=== PATIENT | female | born 1965 | race Caucasian/White ===

== ENCOUNTER 2017-03-24 10:51 | Emergency (ER) | payer OTHER ==
[~2017-03-24] VITALS: Ht 177.8 cm; Wt 73.5 kg
[~2017-03-24 10:51] MED LIST: BIOT1CAP3 PO; CITA20TA9 PO; LEVO175T PO; NXM/40 PO; PROB1TAB16 PO
[2017-03-24 10:57] VITALS: TEMP 36.5; Ht 177.8 cm; Wt 73.5 kg
[2017-03-24] MEDS ORDERED: DIAZEPAM INJ 5 MG/ML 2 ML CARP IM STA (11:18)
[2017-03-24] MEDS ORDERED: KETOROLAC TROMETHAMINE 60 MG/2 ML VIAL IM STA (11:18)
[2017-03-24] MEDS ORDERED: LEVO125T72 PO (11:22)
--- NOTE | 2017-03-24 12:07 | DIAGNOSTIC IMAGING REPORT ---
C-SPINE ROUTINE 4 OR 5 VIEWS CLINICAL HISTORY: right side neck pain with numb/tingling down arm COMPARISON STUDY: No previous studies for comparison. FINDINGS: The prevertebral soft tissues are normal. There are degenerative changes present C4-5, C5-6, and C6-7 levels. There are small posterior osteophytes at the C5-6 level. There is right-sided foraminal narrowing at the C5-6 and C6-7 levels. There is left-sided foraminal narrowing at the C5-6 and C6-7 levels. No fractures or traumatic subluxations are visualized. IMPRESSION: Degenerative changes the C 4-5, C5-6, and C6-7 levels. Bony foraminal narrowing secondary to uncinate spurring. Electronically signed by: Bhavesh Kam M.D. 03/24/2017 12:05 PM Dictated Date/Time: 03/24/2017 12:04 PM
--- NOTE | 2017-03-24 12:44 | EMERGENCY ROOM VISIT NOTE ---
ED Visit Note First contact with patient: 11:06 CHIEF COMPLAINT: Neck pain HISTORY OF PRESENT ILLNESS: This is patient presents to the emergency department complaining of pain in the neck on the right side for the past week. The patient rates the pain as achy and sharp and 7/10. The patient has taken ibuprofen and Flexeril for the pain. The patient does not have a history of previous neck problems. There was no injury to the neck. 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 She is right-hand dominant. The patient states the pain radiates into her right shoulder blade area. She does not have pain of the arms. The patient reports intermittent numbness and tingling in both arms, right more than left, states this is worse with certain positions of her neck. She denies any weakness in the arms. The patient denies chest pain or shortness of breath. There was no head injury and no loss of consciousness. The patient denies headache, blurred vision, abdominal pain, nausea, or vomiting. The patient denies change in personality. REVIEW OF SYSTEMS: A 10 point system review of systems was completed with positives and pertinent negatives listed in the HPI. ALLERGIES: See body of chart MEDICATIONS: See body of chart PMH: Hypothyroidism, anxiety/depression. 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 Denies tobacco, alcohol, recreational drugs. PHYSICAL EXAM: VITALS: Vitals are noted on the nurse's note and reviewed by myself. Vital signs stable. GENERAL: Awake and alert, oriented 4, in no acute distress, non- diaphoretic, well-developed well-nourished. SKIN: Capillary reflex less than 2 seconds. HEENT: Normocephalic. PERRLA. EOMI. Nares patent. Mucous membranes moist. Neck is supple without nuchal rigidity. Cervical spine is not tender to palpation. The patient has tenderness of the paraspinal muscles on the right side, as well as the right trapezius muscle. There is no lymphadenopathy. MUSCULOSKELETAL: The patient has full range of motion of the bilateral arms. Strength 5/5 of the bilateral upper extremities. The patient has tenderness with range of motion of the neck, especially extension and rotation to the left. NEURO: Patient was alert and oriented to person place and time. Normal sensation to light and sharp touch. No focal neurologic deficits. DIFFERENTIAL DIAGNOSES: Cervical muscle strain, sprain, torticollis, disc bulging, cervical stenosis; less likely cervical fracture. DIAGNOSTICS: C-SPINE ROUTINE 4 OR 5 VIEWS CLINICAL HISTORY: right side neck pain with numb/tingling down arm COMPARISON STUDY: No previous studies for comparison. FINDINGS: The prevertebral soft tissues are normal. There are degenerative changes present C4-5, C5-6, and C6-7 levels. There are small posterior osteophytes at the C5-6 level. There is right-sided foraminal narrowing at the C5-6 and C6-7 levels. There is left-sided foraminal narrowing at the C5-6 and C6-7 levels. No fractures or traumatic subluxations are visualized. IMPRESSION: Degenerative changes the C 4-5, C5-6, and C6-7 levels. Bony foraminal narrowing secondary to uncinate spurring. EMERGENCY DEPARTMENT COURSE: I examined the patient. She has tenderness to palpation of the right paraspinous and trapezius muscles, aggravated with range of motion. She has no neurologic deficits of weakness, decreased coordination, or sensory loss. Given her age and persistence of symptoms, x-ray of the neck was performed which shows degenerative changes from C4 to C7 bilaterally, no acute problems. Patient was treated with IM Toradol and Valium, with good improvement in her pain and improved range of motion in the neck. Patient was provided with Rx for Valium and Naprosyn, and encouraged to follow up with her PCP. Patient was also provided with a disc of her x-ray to share with her PCP. Current/Historical Medications Scheduled Biotin (Biotin), 5,000 MCG PO QAM Citalopram Hydrobromide (Celexa), 20 MG PO QAM Diazepam (Valium), 5 MG PO QID Levothyroxine Sodium (Synthroid), 125 MCG PO DAILY Naproxen (Naprosyn), 500 MG PO BID Probiotic Product (Probiotic), 1 TAB PO QAM Allergies Coded Allergies: Morphine (Verified Allergy, Unknown, N/V, 03/24/17) Penicillins (Verified Allergy, Unknown, HIVES, 03/24/17) Vital Signs Date Time Temp Pulse Resp B/P Pulse Ox O2 Delivery O2 Flow Rate FiO2 03/24/17 12:36 51 18 116/61 98 Room Air 03/24/17 10:57 36.5 67 18 123/76 99 Room Air Medications Administered Medications (Trade) Dose Ordered Sig/Deana Route Start Time Stop Time Status Last Admin Dose Admin Ketorolac Tromethamine (Toradol Inj) 60 mg NOW STAT IM 03/24/17 11:18 03/24/17 11:24 DC 03/24/17 11:31 60 MG Diazepam (Valium Inj) 10 mg NOW STAT IM 03/24/17 11:18 03/24/17 11:24 DC 03/24/17 11:31 10 MG Departure Information Impression Primary Impression: Musculoskeletal neck pain Additional Impression: Degenerative cervical spinal stenosis Dispostion Home / Self-Care Condition GOOD Prescriptions Diazepam (Valium) 5 Mg Tab 5 MG PO QID for 4 Days, #16 TAB Prov: Ann Marie Cespedes, DOCUMENT CONTROLLER 03/24/17 Naproxen (Naprosyn) 500 Mg Tab 500 MG PO BID for 14 Days, #28 TAB Prov: Ann Marie Cespedes, DOCUMENT CONTROLLER 03/24/17 Referrals Ashlee Moran M.D. (PCP) Patient Instructions ED Neck Pain No Trauma, ED Spasm Neck No Injury, [facility] Additional Instructions Follow-up with your PCP in the next few days if your neck pain is not improving with medications. Take all medications as prescribed. Take the Aleve twice a day for the next several days to help with inflammation and pain. Take the Valium one tablet every 6-8 hours as needed for muscle spasms. This this medication may make you drowsy, so it is important that you do not drive, drink alcohol, or do any other activities where you need to be fully alert. Use a heating pad or warm compresses to the area several times at the day for comfort. Do gentle stretches and gentle massage as tolerated. Avoid repetitive or strenuous activities that may aggravate and worse in your pain. Please return to the ER for any worsening symptoms, including severe headache, complete numbness or weakness of one or both arms, severe worsening pain that is not managed with medications, or any other concerns. Problem Qualifiers
[2017-03-24] MEDS ORDERED: NAPR-1169 PO (13:01)
[2017-03-24] MEDS ORDERED: DIAZ-165 PO (13:01)
[2017-03-24 13:08] VITALS: BP 107/71; PULSE 58; O2SAT 97
== END 2017-03-24 13:09 | disposition home or self-care (01) ==
LOC: C.EDB 10:54 → C.EDD 13:09
DX: M54.2 Cervicalgia (principal); M48.02 Spinal stenosis, cervical region; E03.9 Hypothyroidism, unspecified; F41.8 Other specified anxiety disorders; Z79.899 Other long term (current) drug therapy

== ENCOUNTER 2021-02-08 10:40 | Inpatient (IN) ==
[2021-02-08] MEDS ORDERED: HYDROmorphone INJ 0.5 MG/0.5 ML SYR IV STA ×2 (10:55→13:05)
[2021-02-08] MEDS ORDERED: ONDANSETRON INJ 2 MG/ML 2 ML VIAL IV STA (10:56)
--- NOTE | 2021-02-08 10:59 | Emergency Department Note ---
Impression & Plan Syncope, Status post right partial knee replacement, Lightheaded, Acute hypokalemia ED Provider Note NAME: BONY DEGROOT AGE: 56 SEX: F : 1965 ARRIVES VIA: Ambulance INFORMANT: Patient ED PROVIDER(S): Meño Snyder DO CHIEF COMPLAINT: Near syncope/syncope HPI: Patient is a 56-year-old female who presents to the ER status post right partial knee replacement. Patient had this done on Tuesday by Dr. Singh. Last night and today she has been having severe pain with movement. She believes that she overdid it yesterday. She admits that when she goes to stand or sit up she had severe pain and she became nauseated which progressed to blurry vision and then everything nearly goes black. If she lays back and this all resolves. She did pass out once. She did not hit her head. She sitting in chair when this occurred. She denies any headache or change in vision. No chest pain or shortness of breath. Denies any nausea, vomiting, or diarrhea currently. No dysuria, urgency, or frequency. She took 1 dose of Xarelto yesterday. She did not take it today. Denies any recent blood thinners as her clot was several months ago and she was only on thinners for 3 months. ROS: See above HPI for pertinent positives & negatives. A total of 10 systems reviewed and were otherwise negative. PAST MEDICAL HISTORY:See Below PAST SURGICAL HISTORY:See Below FAMILY HISTORY:See Below SOCIAL HISTORY:See Below HOME MEDICATIONS:See Below ALLERGIES:See Below VITALS:See Below PHYSICAL EXAMINATION: GENERAL: Sitting up in bed, alert, well appearing, well nourished, no distress, non-toxic EYE EXAM: normal conjunctiva. PERRL and EOM's intact. OROPHARYNX: no exudate, no erythema, lips, buccal mucosa, and tongue normal and mucous membranes are moist NECK: supple, no nuchal rigidity, no adenopathy, non-tender LUNGS: Clear to auscultation. Normal chest wall mechanics HEART: no murmurs, S1 normal and S2 normal ABDOMEN: abdomen soft, non-tender, normo-active bowel sounds, no masses, no rebound or guarding. UPPER EXTREMITIES: upper extremities are grossly normal. LOWER EXTREMITIES: TEDS on bilateral lower extremities. Right knee is swollen with dressing in place and bruise. Compartments are soft in the calf and thigh. Sensations intact. DPs 2 out of 4. NEURO EXAM: Normal sensorium, cranial nerves II-XII intact, normal speech, no weakness of arms, no weakness of legs. No drift. Finger to nose intact. Gross sensation intact. MEDICAL DECISION MAKING: Patient is a 56-year-old female who presents the ER for syncope and near syncope following having partial knee replacement performed on Tuesday.IV was established blood work was obtained. She was hypertensive. Labs show no significant leukocytosis or anemia. BMP with mild hypokalemia. INR was unremarkable. LFTs bilirubin were negative. Troponin was normal. EKG was nondiagnostic. CT angio was performed with a history of previous PEs and recent surgery and was negative. Patient ambulated to the bathroom and nearly passed out again. I do favor this is likely vasovagal but cannot be certain at this time. Either rate patient is stable to go home.2 dose of IV Dilaudid given. Triage Nursing notes reviewed. Limited review of prior medical records performed Vital Signs: reviewed and remarkable for HTN Differential diagnosis: Differential diagnosis includes etiologies such as benign positional vertigo, dehydration, hypovolemia, anemia, tumor, infection, hypoglycemia, electrolyte abnormalities, cardiac sources, intracerebral event, toxicologic, neurological, as well as others were entertained. ER treatment provided: See below Diagnostics interpreted by me: ECG: Sinus bradycardia rate of 57 Normal axis No PVCs QTC 383 Cardiac Monitoring: An order was placed for continuous cardiac monitoring. The monitor shows a rate of 60 with sinus rhythm. Laboratory studies: As stated above and show below. Imaging studies: CT Lauren of the chest shows no acute pathology Consultation(s): Discussed with Dr. Jax Patel for further evaluation Procedures: none Critical Care: None Past Med/Surg History Medical History (Updated 02/08/21 @ 14:27 by Meño Snyder DO) Anxiety Hx of thyroid cancer resolved 2009 no chemo/ had radioactive iodine Hypothyroidism On anticoagulant therapy started 10/28/2020 and to finish 01/26/21 Osteoarthritis Pulmonary embolism dx 10/28/2020 -- treated with anticoagulation. [place] possibly related to knee arthroscopy 08/2020. Spinal stenosis cervical Surgical History (Updated 02/08/21 @ 14:27 by Meño Snyder DO) H/O thyroidectomy History of arthroscopy x1left shoulder /x2 right shoulder History of bilateral tubal ligation History of colonoscopy History of esophagogastroduodenoscopy (EGD) History of repair of rotator cuff bilateral Hx of foot surgery right no pins or metal Hx of prior ablation treatment uterine Nausea and vomiting after administration of anesthetic agent S/P arthroscopy of right shoulder x2 S/P right knee arthroscopy Status post right partial knee replacement (~01/2021) Family History Sister Diabetes Other No family history of adverse response to anesthesia Social History Smoking Status: Never smoker Second Hand Exposure: No; Hx Alcohol Use: No Hx Substance Use: No Preferred Language: Nigerian Communication Ability: Effective Nut Picker Required: No Beliefs That Will Affect Care: None marital status: Current Living Situation: Spouse and Family Feels Safe at Home: Yes Assistive Devices: Walker Allergies Allergies Allergy/AdvReac Type Severity Reaction Status Date / Time Penicillins Allergy Severe HIVES Verified 02/08/21 11:06 morphine AdvReac Severe N/V Verified 02/08/21 11:06 Home Meds Home Medications Medication Instructions Recorded Confirmed levothyroxine [Synthroid] 125 mcg PO QAM 09/24/19 02/08/21 ibuprofen [Advil] 400 mg PO DAILY PRN 08/19/20 02/08/21 citalopram 30 mg PO QAM 01/05/21 02/08/21 esomeprazole magnesium 40 mg PO QAM 01/05/21 02/08/21 famotidine 40 mg PO QPM PRN 01/05/21 02/08/21 minocycline 50 mg PO QAM 01/05/21 02/08/21 docusate sodium [Colace] 100 mg PO DAILY 02/06/21 02/08/21 Previous Rx's Medication Instructions Recorded Xarelto 10 mg PO QAM 10 Days #0 tab 02/07/21 oxycodone 5 mg PO Q4H PRN #30 tab 02/07/21 Results & Data (ED) Vital Signs Vital Signs - 24 hr 02/08/21 10:47 02/08/21 10:53 02/08/21 11:14 Temperature 37.6 C H Temperature Source Oral Pulse Rate - Lying 62 Pulse Rate - Sitting 57 L Pulse Rate - Standing 71 Pulse Rate 58 L Pulse Rate [Left Apical] Pulse Rhythm [Left Apical] Pulse Strength [Left Apical] Respiratory Rate 18 Respiratory Effort / Characteristics Respiratory Depth Respiratory Pattern Blood Pressure - Lying 161/91 H Blood Pressure - Sitting 155/79 H Blood Pressure- Standing 127/86 Blood Pressure 176/80 H Blood Pressure [Right Arm] Blood Pressure Mean 112 Blood Pressure Mean [Right Arm] Blood Pressure Position [Right Arm] Pulse Oximetry 98 98 Oxygen Delivery Method Room Air Room Air Sepsis Recent Fever Within 48 Hours No Sepsis New/Unexplained Change in Mental Status N/A Sepsis Action Taken by Nursing No Action Required 02/08/21 11:30 02/08/21 12:22 02/08/21 13:39 Temperature Temperature Source Pulse Rate - Lying Pulse Rate - Sitting Pulse Rate - Standing Pulse Rate Pulse Rate [Left Apical] 56 L 59 L 54 L Pulse Rhythm [Left Apical] Regular Regular Regular Pulse Strength [Left Apical] Normal Normal Normal Respiratory Rate 16 16 16 Respiratory Effort / Characteristics Non-Labored Spontaneous Non-Labored Spontaneous Non-Labored Spontaneous Respiratory Depth Normal Normal Normal Respiratory Pattern Regular Regular Regular Blood Pressure - Lying Blood Pressure - Sitting Blood Pressure- Standing Blood Pressure Blood Pressure [Right Arm] 127/86 166/94 H 169/80 H Blood Pressure Mean Blood Pressure Mean [Right Arm] 99 118 109 Blood Pressure Position [Right Arm] Lying Lying Pulse Oximetry 99 99 99 Oxygen Delivery Method Room Air Room Air Room Air Sepsis Recent Fever Within 48 Hours Sepsis New/Unexplained Change in Mental Status Sepsis Action Taken by Nursing Laboratory Data Result diagrams: 02/08/21 Unknown 02/08/21 Unknown Lab Results 02/08/21 02/08/21 02/08/21 Range/Units Unknown Unknown Unknown WBC 9.72 (4.8-10.8) K/uL RBC 3.66 L (4.2-5.4) M/uL Hgb 12.1 (12.0-16.0) g/dL Hct 35.4 L (37-47) % MCV 96.7 (80-100) fL MCH 33.1 (25-34) pg MCHC 34.2 (32-36) g/dL RDW Std Deviation 47.7 H (36.4-46.3) fL RDW Coeff of Mahnaz 13.6 (11.5-14.5) % Plt Count 312 (130-400) K/uL MPV 8.9 (7.4-10.4) fL Immature Gran % (Auto) 0.5 % Neut % (Auto) 64.2 % Lymph % (Auto) 24.6 % [place] % (Auto) 10.5 % Eos % (Auto) 0.1 % Baso % (Auto) 0.1 % Neut # (Auto) 6.24 (1.4-6.5) K/uL Lymph # (Auto) 2.39 (1.2-3.4) K/uL [place] # (Auto) 1.02 H (0.11-0.59) K/uL Eos # (Auto) 0.01 (0-0.5) K/uL Baso # (Auto) 0.01 (0-0.2) K/uL Immature Gran # (Auto) 0.05 H (0.00-0.02) K/uL PT 9.8 (9.0-12.0) Seconds INR 1.0 (0.9-1.1) Sodium 142 (136-145) mmol/L Potassium 3.4 L (3.5-5.1) mmol/L Chloride 105 (98-107) mmol/L Carbon Dioxide 32 (21-32) mmol/L Anion Gap 5.0 (3-11) BUN 10 (7-18) mg/dl Creatinine 0.87 (0.6-1.2) mg/dl Est Cr Clr Drug Dosing 86.5 ml/min Est GFR ( Amer) 85.1 Est GFR (Non-Af Amer) 73.4 BUN/Creatinine Ratio 11.6 (10-20) Glucose 90 (70-99) mg/dl Calcium 8.7 (8.5-10.1) mg/dl Total Bilirubin 0.4 (0.2-1) mg/dl AST 13 L (15-37) U/L ALT 24 (12-78) U/L Alkaline Phosphatase 89 (45-117) U/L Troponin I < 0.015 (0-0.045) ng/ml Total Protein 7.1 (6.4-8.2) gm/dl Albumin 3.3 L (3.4-5.0) gm/dl Globulin 3.8 (2.5-4.0) gm/dl Albumin/Globulin Ratio 0.9 (0.9-2) Administered Medications Discontinued Medications Hydromorphone HCl (Hydromorphone Inj 0.5 Mg/0.5 Ml Syr) 0.5 mg IV NOW STA Stop: 02/08/21 10:56 Last Admin: 02/08/21 11:16 Dose: 0.5 mg Documented by: [id number] Hydromorphone HCl (Hydromorphone Inj 0.5 Mg/0.5 Ml Syr) 0.5 mg IV NOW STA Stop: 02/08/21 13:06 Last Admin: 02/08/21 13:38 Dose: 0.5 mg Documented by: [id number] Sodium Chloride (Nss 1000ml) 1,000 mls @ 999 mls/hr IV .Q1H1M RA Stop: 02/08/21 12:00 Last Infusion: 02/08/21 12:12 Dose: 0 mls/hr Documented by: [id number] Admin: 02/08/21 11:17 Dose: 999 mls/hr Documented by: [id number] Ioversol (Optiray 320 125ml) 118 ml IV ONCE ONE Stop: 02/08/21 11:02 Last Admin: 02/08/21 11:01 Dose: 118 ml Documented by: [id number] Ondansetron HCl (Ondansetron Inj 2 Mg/Ml 2 Ml Vial) 4 mg IV NOW STA Stop: 02/08/21 10:57 Last Admin: 02/08/21 11:16 Dose: 4 mg Documented by: [id number] Discharge Plan Visit Data Chief Complaint: Dizziness ED Provider: Meño Snyder Discharge Problem: Syncope, Status post right partial knee replacement, Lightheaded, Acute hypokalemia Forms Stand Alone Forms: [facility] Prescriptions Prescriptions: No Action citalopram 20 mg Tablet 30 mg PO QAM RF: 0 esomeprazole magnesium 40 mg Capsule,Delayed Release(Dr/Ec) 40 mg PO QAM RF: 0 minocycline 50 mg Tablet 50 mg PO QAM RF: 0 famotidine 40 mg Tablet 40 mg PO QPM PRN (Reason: Heartburn) RF: 0 docusate sodium [Colace] 100 mg Capsule 100 mg PO DAILY RF: 0 oxycodone 5 mg Tablet 5 mg PO Q4H PRN (Reason: pain) Qty: 30 RF: 0 Xarelto 20 mg Tablet 10 mg PO QAM 10 Days Qty: 0 RF: 0 levothyroxine [Synthroid] 125 mcg Tablet 125 mcg PO QAM RF: 0 ibuprofen [Advil] 200 mg Tablet 400 mg PO DAILY PRN (Reason: Pain) RF: 0 Discharge Problem: Syncope Qualifiers: Syncope type: unspecified Qualified Code(s): R55 - Syncope and collapse
[2021-02-08] MEDS ORDERED: SODIUM CHLORIDE 0.9% 1000ML 1,000 ML IV SCH ×2 (11:00→16:29)
[2021-02-08] MEDS ORDERED: OPTIRAY 320 125ml IV ONE (11:01)
[2021-02-08 11:04] LABS: Basophils # (auto) 0.01 K/uL (0-0.2); Basophils % (auto) 0.1 %; Eosinophils # (auto) 0.01 K/uL (0-0.5); Eosinophils % (auto) 0.1 %; Hematocrit (blood only) 35.4 % (37-47); Hemoglobin 12.1 g/dL (12.0-16.0); Immature Granulocytes # (auto) 0.05 K/uL (0.00-0.02); Immature Granulocytes % (auto) 0.5 %; Lymphocytes # (auto) 2.39 K/uL (1.2-3.4); Lymphocytes % (auto) 24.6 %; Mean Corpuscular Hemoglobin 33.1 pg (25-34); Mean Corpuscular Hgb Conc 34.2 g/dL (32-36); Mean Corpuscular Volume 96.7 fL (80-100); Mean Platelet Volume 8.9 fL (7.4-10.4); Monocytes # (auto) 1.02 K/uL (0.11-0.59); Monocytes % (auto) 10.5 %; Neutrophils # (auto) 6.24 K/uL (1.4-6.5); Neutrophils % (auto) 64.2 %; Platelet Count 312 K/uL (130-400); RDW Coefficient of Variation 13.6 % (11.5-14.5); RDW Standard Deviation 47.7 fL (36.4-46.3); Red Blood Count 3.66 M/uL (4.2-5.4); White Blood Count 9.72 K/uL (4.8-10.8)
[2021-02-08 11:13] LABS: Prothrombin Time 9.8 Seconds (9.0-12.0)
[2021-02-08 11:19] LABS: Alanine Aminotransferase 24 U/L (12-78); Albumin Level 3.3 gm/dl (3.4-5.0); Aspartate Aminotransferase 13 U/L (15-37); BUN Creatinine Ratio 11.6 (10-20); Blood Urea Nitrogen 10 mg/dl (7-18); Calcium 8.7 mg/dl (8.5-10.1); Carbon Dioxide 32 mmol/L (21-32); Chloride 105 mmol/L (98-107); Creatinine Clr Calc Pharmacy 86.5 ml/min; Est GFR (African American) 85.1; Est GFR (Non-African American) 73.4; Glucose 90 mg/dl (70-99); Potassium 3.4 mmol/L (3.5-5.1); Sodium 142 mmol/L (136-145)
[2021-02-08 11:24] LABS: Albumin Globulin Ratio 0.9 (0.9-2); Alkaline Phosphatase 89 U/L (45-117); Bilirubin,Total 0.4 mg/dl (0.2-1); Globulin 3.8 gm/dl (2.5-4.0); Total Protein 7.1 gm/dl (6.4-8.2); Troponin I < 0.015 ng/ml (0-0.045)
--- NOTE | 2021-02-08 12:17 | CT Scan Report ---
CT angio chest PE protocol CT DOSE: 357.65 mGy.cm HISTORY: 56 years-old Female with recent surg and PEs w/ syncope. Acute shortness of breath with sy ncope TECHNIQUE: Multiple CTA images of the chest were obtained after the intravenous administration of 118 ml Optiray 320. Coronal and sagittal MIPS were obtained from the axial data set and were submitted for review. All measurements were obtained according to NASCET criteria. A dose lowering technique w as utilized adhering to the principles of ALARA. COMPARISON: None. FINDINGS: CTA: The heart is normal in size. No pericardial effusion. No thoracic aortic aneurysm or dissection. Dumont ncy of the imaged great vessels. Satisfactory opacification of the pulmonary arterial tree. No pulmon jennifer emboli. CT CHEST: Thyroidectomy. No adenopathy. Trace pleural effusions. There is no pneumothorax, overt pulmonary berta a or airspace consolidation to suggest pneumonia. Mild dependent subsegmental bibasilar atelectasis. Central airways are patent. No suspicious pulmonary nodules. Indeterminate 3 mm right middle lobe nod ule, image 97 series 4 is of low clinical suspicion. No pneumoperitoneum. No acute process of the imaged upper abdomen. Unremarkable soft tissues. No acut e fracture. No suspicious bone lesion. IMPRESSION: 1. No pulmonary emboli. 2. Trace pleural effusions with mild dependent subsegmental bibasilar atelectasis. ACT 112: Negative or not required by law. The above report was generated using voice recognition software. It may contain grammatical, syntax o r spelling errors. Electronically signed by: Raza Gruber M.D. 02/08/2021 12:16 PM
--- NOTE | 2021-02-08 13:41 | History & Physical Report ---
Date of Service February 08, 2021 Assessment & Plan (1) Syncope: Patient presents with syncope at home associated with postoperative pain. In the emergency department she is hypertensive bradycardic with a low-grade temperature. Does not appear to have an immediate infectious source has a mild h ypokalemia 3.4, negative troponin, CTA of the chest shows no pulmonary emboli subsegmental bibasilar atelectasis, EKG shows sinus bradycardia with LVH will have on telemetry, check echo, control pain , hydrate and have orthostatic blood pressures in the am (2) Pulmonary embolism: Patient was restarted on Xarelto initiated on this therapy October 28. We will continue with Xarelto 10 at this point time as CTA was negative at admission (3) Status post right partial knee replacement: Underwent right total knee replacement 02/06/[address] Singh DVT prevention will be Xarelto 10 mg postoperatively daily (4) Hypothyroidism: Remains on Synthroid 125, will check TSH and T4 the morning (5) Depression: Continue citalopram (6) Hypokalemia: Augment potassium and magnesium with rechecks in the morning History of Present Illness Primary Care Provider: Roel Huynh M.D. 55-year-old female who underwent total knee arthroplasty on 02/07/2021. This was due to failure of outpatient management of osteoarthritis, meniscal tear. She presents to the ER with complaints of dizziness and weakness. She has been having severe pain with movement. She believes that she overdid it 02/07/21 She admits that when she goes to stand were set up she had severe pain she is nauseated with blurry vision and that everything nearly goes black. She did pass out once. She did not hit her head. She sitting in chair when this occurred. She denies any headache or change in vision. No chest pain or shortness of breath. Denies any nausea vomiting or diarrhea currently. No dysuria, urgency, or frequency. She took 1 dose of Xarelto yesterday. She did not take it today. 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 To this end we will try a scopolamine patch and as needed meclizine Allergies Allergy/AdvReac Type Severity Reaction Status Date / Time Penicillins Allergy Severe HIVES Verified 02/08/21 11:06 morphine AdvReac Severe N/V Verified 02/08/21 11:06 Home Medications Medication Instructions Recorded Confirmed Type levothyroxine [Synthroid] 125 mcg PO QAM 09/24/19 02/08/21 History ibuprofen [Advil] 400 mg PO DAILY PRN 08/19/20 02/08/21 History citalopram 30 mg PO QAM 01/05/21 02/08/21 History esomeprazole magnesium 40 mg PO QAM 01/05/21 02/08/21 History famotidine 40 mg PO QPM PRN 01/05/21 02/08/21 History minocycline 50 mg PO QAM 01/05/21 02/08/21 History docusate sodium [Colace] 100 mg PO DAILY 02/06/21 02/08/21 History Xarelto 10 mg PO QAM 10 Days #0 tab 02/07/21 02/08/21 Rx oxycodone 5 mg PO Q4H PRN #30 tab 02/07/21 02/08/21 Rx Past Med/Surg History Medical History (Updated 02/08/21 @ 14:39 by Todd Patel MD) Anxiety Hx of thyroid cancer resolved 2009 no chemo/ had radioactive iodine Hypothyroidism On anticoagulant therapy started 10/28/2020 and to finish 01/26/21 Osteoarthritis Pulmonary embolism dx 10/28/2020 -- treated with anticoagulation. [place] possibly related to knee arthroscopy 08/2020. Spinal stenosis cervical Surgical History (Updated 02/08/21 @ 14:27 by Meño Snyder DO) H/O thyroidectomy History of arthroscopy x1left shoulder /x2 right shoulder History of bilateral tubal ligation History of colonoscopy History of esophagogastroduodenoscopy (EGD) History of repair of rotator cuff bilateral Hx of foot surgery right no pins or metal Hx of prior ablation treatment uterine Nausea and vomiting after administration of anesthetic agent S/P arthroscopy of right shoulder x2 S/P right knee arthroscopy Status post right partial knee replacement (~01/2021) Family History Sister Diabetes Other No family history of adverse response to anesthesia Social History Smoking Status: Never smoker Second Hand Exposure: No; Do You Dip or Chew Tobacco: No; Hx Alcohol Use: No Hx Substance Use: No Preferred Language: Amharic Communication Ability: Effective Comic Book 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 Required: No Beliefs That Will Affect Care: None marital status: Current Living Situation: Spouse Other Information That Helps Us Care for You: No Feels Safe at Home: Yes Safety Concerns: Feels Safe At This Time Assistive Devices: Walker Review of Systems Review of Systems: Mild distress and fatigue no headache, blurry or double vision no speech or swallowing issues no chest pain, pressure or palpitations no shortness of breath, cough or wheezes no abdominal pain, nausea or vomiting, diarrhea or constipation no dysuria, hematuria or frequency Right knee pain worse since she was discharged there is some postoperative swelling which is appropriate no back pain, CVA tenderness or radicular pain no bruising, bleeding or rashes no focal signs of weakness or numbness or altered sensation Patient does have reproducible symptoms with position no complaints of anxiety or depression.. Physical Exam Physical Exam: The patient appeared well nourished and normally developed. Vital signs as documented. Head exam is normocephalic atraumatic no scleral icterus Neck is without JVD, thyromegaly, or carotid bruits. Lungs are clear to auscultation, no focal loss of breath sounds Cardiac exam, Rhythm is regular.. No murmurs, rubs or gallops. Abdominal exam reveals normal bowel sounds, soft non tender, no masses Extremities on the right is with mild swelling and some bruising surrounding the knee though this incision itself is clean dry and intact Neurologic exam is alert and oriented, no focal loss of strength or sensation Skin is with mild perioperative bruises about her knee Psychologically is without concerns for anxiety or depression Results & Data Results & Data ([facility]) Vital Signs (Past 12 Hours) Vital Signs Temp Pulse Pulse Resp BP BP Pulse Ox 02/08/21 12:22 59 L 16 166/94 H 99 02/08/21 11:30 56 L 16 127/86 99 02/08/21 10:53 98 02/08/21 10:47 99.7 F H 58 L 18 176/80 H 98 PG Care Time/CCT Total # of Minutes Spent Total Time Spent with Patient: Total time spent is greater than 50% in coordination of care (as documented) at patient's floor/unit and/or counseling patient: Coding Level of Care Code 50231 OBS Care - Level 3 Diagnoses Syncope R55 Pulmonary embolism I26.99 Status post right partial knee replacement Z96.651 Hypothyroidism E03.9 Depression F32.9 Hypokalemia E87.6
--- NOTE | 2021-02-08 15:16 | Electrocardiogram Report ---
Test Reason : Blood Pressure : / mmHG Vent. Rate : 057 BPM Atrial Rate : 057 BPM P-R Int : 190 ms QRS Dur : 096 ms QT Int : 394 ms P-R-T Axes : 047 074 071 degrees QTc Int : 383 ms Sinus bradycardia Otherwise normal ECG When compared with ECG of 22-AUG-2020 10:48, No significant change was found Confirmed by Khadar Haq ([id number]) on 02/08/2021 3:16:10 PM Referred By: Confirmed By:Khadar Haq
[2021-02-08 16:08] LABS: Influenza A virus by PCR Negative (Neg); Influenza B virus by PCR Negative (Neg); RSV by PCR Negative (Neg); SARS CoV2 RNA(COVID-19) InHosp NEGATIVE (Negative)
[2021-02-08] MEDS ORDERED: HYDROmorphone INJ 0.5 MG/0.5 ML SYR IV PRN (16:29)
[2021-02-08] MEDS ORDERED: SCOPOLAMINE 1 MG TDSY TD SCH (16:29)
[2021-02-08] MEDS ORDERED: ALUMINUM/MAGNESIUM SUSP 30 ML UDC PO PRN (16:29)
[2021-02-08] MEDS ORDERED: oxyCODONE HCL IR 5 MG TAB (IMMEDIATE RELEASE) PO PRN (16:29)
[2021-02-08] MEDS ORDERED: ONDANSETRON INJ 2 MG/ML 2 ML VIAL IV PRN (16:29)
[2021-02-08] MEDS ORDERED: HYDROmorphone INJ 1 MG/ML SYRINGE IV PRN (16:29)
[2021-02-08] MEDS ORDERED: MAGNESIUM SULFATE / D5W 1 GM/100 ML BAG IV ONE (16:29)
[2021-02-08] MEDS: oxyCODONE HCL IR 5 MG TAB (IMMEDIATE RELEASE) PO PRN ×2 (16:48→23:37)
[2021-02-08] MEDS: CHECK SCOPOLAMINE PATCH PLACEMENT SCH (17:19)
[2021-02-08] MEDS: ACETAMINOPHEN 500 MG TAB PO SCH (20:28)
[2021-02-08] MEDS: POTASSIUM CHLORIDE CRTAB 20 MEQ TABCR PO SCH (20:28)
[2021-02-09] MEDS: LEVOTHYROXINE SODIUM 125 MCG TABLET PO SCH (05:56)
[2021-02-09] MEDS: oxyCODONE HCL IR 5 MG TAB (IMMEDIATE RELEASE) PO PRN (06:02)
[2021-02-09 06:44] LABS: BUN Creatinine Ratio 9.4 (10-20); Blood Urea Nitrogen 9 mg/dl (7-18); Calcium 8.6 mg/dl (8.5-10.1); Carbon Dioxide 30 mmol/L (21-32); Chloride 108 mmol/L (98-107); Creatinine Clr Calc Pharmacy 78.4 ml/min; Est GFR (African American) 75.6; Est GFR (Non-African American) 65.2; Glucose 86 mg/dl (70-99); Magnesium 2.4 mg/dl (1.8-2.4); Potassium 3.9 mmol/L (3.5-5.1); Sodium 141 mmol/L (136-145)
[2021-02-09 06:54] LABS: Troponin I < 0.015 ng/ml (0-0.045)
[2021-02-09 07:06] LABS: T4 Free Thyroxine 0.95 ng/dl (0.8-1.6)
[2021-02-09] MEDS: RIVAROXABAN 10 MG TABLET PO SCH (08:06)
[2021-02-09] MEDS: PANTOprazole 40 MG TAB PO SCH (08:07)
[2021-02-09] MEDS: ACETAMINOPHEN 500 MG TAB PO SCH (08:07)
[2021-02-09] MEDS: POTASSIUM CHLORIDE CRTAB 20 MEQ TABCR PO SCH ×2 (08:07→20:37)
[2021-02-09] MEDS: CITALOPRAM 20 MG TAB PO SCH (08:08)
[2021-02-09] MEDS: DOCUSATE SODIUM 100 MG CAP PO SCH (08:08)
[2021-02-09] MEDS: CHECK SCOPOLAMINE PATCH PLACEMENT SCH ×3 (08:10→16:06)
--- NOTE | 2021-02-09 11:19 | XCELERA ---
[id number] \\[id number]}___[id number]
--- NOTE | 2021-02-09 11:24 | Orthopedic Consultation ---
Date of Service February 09, 2021 Assessment & Plan (1) Status post right partial knee replacement: She has been admitted to the hospitalist for further evaluation of this syncopal episode. She is on telemetry. She has been bradycardic and hypertensive. She does not feel comfortable going home at this point and feels more comfortable being here to be monitored for further syncopal events. She can continue PT/OT, total knee protocol. Will discuss with Dr. Singh. History of Present Illness Reason for Consultation: . Recent Partial knee replacement Requesting Physician: . Attending Physician: Fernando Miller . Jade is a 56 year old female, POD #3 from right knee unicompartmental arthrop lasty. She was doing well initially, discharged POD #1 to home. Later that night she said her pain increased. She then experienced a syncopal episode after sitting up. She denies falling. She was admitted to the hospitalist service for further observation and work up for this. She reports similar episodes in the past but not this severe. She is having some right knee pain. She has been out of bed and ambulated some since being in the hospital. Allergies Allergy/AdvReac Type Severity Reaction Status Date / Time Penicillins Allergy Severe HIVES Verified 02/08/21 11:06 morphine AdvReac Severe N/V Verified 02/08/21 11:06 Home Medications Medication Instructions Recorded Confirmed Type levothyroxine [Synthroid] 125 mcg PO QAM 09/24/19 02/08/21 History ibuprofen [Advil] 400 mg PO DAILY PRN 08/19/20 02/08/21 History citalopram 30 mg PO QAM 01/05/21 02/08/21 History esomeprazole magnesium 40 mg PO QAM 01/05/21 02/08/21 History famotidine 40 mg PO QPM PRN 01/05/21 02/08/21 History minocycline 50 mg PO QAM 01/05/21 02/08/21 History docusate sodium [Colace] 100 mg PO DAILY 02/06/21 02/08/21 History Xarelto 10 mg PO QAM 10 Days #0 tab 02/07/21 02/08/21 Rx oxycodone 5 mg PO Q4H PRN #30 tab 02/07/21 02/08/21 Rx Past Med/Surg History Medical History Anxiety Hx of thyroid cancer resolved 2009 no chemo/ had radioactive iodine Hypothyroidism On anticoagulant therapy started 10/28/2020 and to finish 01/26/21 Osteoarthritis Pulmonary embolism dx 10/28/2020 -- treated with anticoagulation. [place] possibly related to knee arthroscopy 08/2020. Spinal stenosis cervical Surgical History H/O thyroidectomy History of arthroscopy x1left shoulder /x2 right shoulder History of bilateral tubal ligation History of colonoscopy History of esophagogastroduodenoscopy (EGD) History of repair of rotator cuff bilateral Hx of foot surgery right no pins or metal Hx of prior ablation treatment uterine Nausea and vomiting after administration of anesthetic agent S/P arthroscopy of right shoulder x2 S/P right knee arthroscopy Status post right partial knee replacement (~01/2021) Family History Sister Diabetes Other No family history of adverse response to anesthesia Social History Smoking Status: Never smoker Second Hand Exposure: No; Do You Dip or Chew Tobacco: No; Hx Alcohol Use: No Hx Substance Use: No Preferred Language: Tamazight Communication Ability: Effective Abstract Checker Required: No Beliefs That Will Affect Care: None marital status: Current Living Situation: Spouse Other Information That Helps Us Care for You: No Feels Safe at Home: Yes Safety Concerns: Feels Safe At This Time Assistive Devices: Walker Review of Systems All systems reviewed & are unremarkable except as noted in HPI & below. Physical Exam .Alert and oriented. NAD. She is resting supine in bed and did raise the head of the bed. Right leg: dressing intact. I did not remove this. She has some mild swelling of the knee and leg, some ecchymosis medially. She can do a straight leg raise. She can dorsiflex and plantar flex appropriately. Results & Data Results & Data Laboratory Results . Diagnostic Findings . PG Care Time/CCT Total # of Minutes Spent Total Time Spent with Patient: Total time spent is greater than 50% in coordination of care (as documented) at patient's floor/unit and/or counseling patient: Coding Level of Care Code None Diagnoses Status post right partial knee replacement Z96.651
[2021-02-09] MEDS ORDERED: SODIUM CHLORIDE 0.9% 1000ML 1,000 ML IV ONE (12:15)
[2021-02-09] MEDS: HYDROcodone/ACETAMINOPHEN 10/325 TAB PO PRN ×2 (12:31→19:34)
--- NOTE | 2021-02-09 12:55 | Hospitalist Progress Note ---
Date of Service February 09, 2021 Assessment & Plan (1) Orthostasis: cause of dizziness, presyncope, and syncope. cortisol level checked -- very low at 1.5, although she received 1 dose of decadron perioperatively around her right TKR which may have causing the cortisol level to be suppressed. fortunately we can perform a consyntropin stim test tomorrow am and the recent decadron will not interfere w/ that assay. in meantime - NS bolus now, check orthostastics qshift. (2) Syncope: CTA neg for PE. echo wnl. tele wnl. syncope 2nd to severe orthostasis. FLUIDS, TEDS, and cosyntropin stim test am. (3) Pulmonary embolism: 10/2020. provoked (by history) -- due to right knee surgery in 08/2020. remains on xarelto low-dose for prophylaxis in setting of right TKR. no PE on CTA study this admission. (4) Status post right partial knee replacement: Underwent right total knee replacement 02/06/[address] Singh DVT prophy - Xarelto 10 mg appreciate ortho consult oxycodone could be worsening her dizziness and orthostasis - d/c, change to norco 10's prn (5) Hypothyroidism: Remains on Synthroid 125 TSH mildly elevated Consider increase to 137mcg daily (6) Depression: Continue citalopram (7) Hypokalemia: replaced and resolved (8) Chronic headaches: [facility] head on 01/29/21 at [facility] was normal/negative deserves MRI, however, given the chronicity and recent worsening (and having nocturnal symptoms) consider prophylaxis (topamax, etc) minocin can cause pseudotumor cerebri consider d/c (9) DVT prophylaxis: xarelto move from PCU to med/tele Admission and Anticipated Discharge Date Admission Date: February 08, 2021 Subjective patient continues to have dizziness with sitting up in bed and also standing. the dizziness starts as soon as she moves. it is not vertigo. she feels lightheaded and near-syncopal. has been present for 2 months or longer but getting worse. c/o being thirsty this am. orthostatics last pm and this am -- 25-30 point drop w/ standing. right knee pain continues despite use of oxycodone. no bowel movement since last Tuesday. had colonoscopy in the last 2 weeks (no bowel movement since the prep for c- scope). patient seen by orthopedics this am. telemetry wnl; no dysrhythmia. Review of Systems Constitutional: no fever and no chills Respiratory: no cough and no dyspnea Cardiovascular: no chest pain Gastrointestinal: + constipation; no abdominal pain, no nausea and no vomiting Neurologic: + headache(s) (unilateral, photophobia, nausea, has to lay down to nap; 20+ years, worse recently) Physical Exam Constitutional: well developed and well nourished; no acute distress and no altered mental status ENMT: Mouth: + dry oral mucous membranes Respiratory: normal respiratory effort, lungs clear to auscultation Cardiovascular: Rate/Rhythm: regular rate and regular rhythm Heart Sounds: normal S1 and normal S2; no murmur Vessels: posterior tibial pulses present; no JVD Extremities: + edema (right leg 2+; none on left ) Gastrointestinal (Abdomen): Inspection/Auscultation: + abdomen distended (mild) Percussion/Palpation: abdomen nontender, no guarding and no hepatosplenomegaly Musculoskeletal: right knee dressings intact; mild knee swelling Skin: no rashes, warm and dry Neurologic: moves all extremities; no focal motor deficits Psychiatric: Orientation: alert and oriented x 3 Results & Data Results & Data ([facility]) Vital Signs (Past 12 Hours) Vital Signs Temp Pulse Pulse Resp BP Pulse Ox 02/09/21 11:38 36.8 C 54 L 18 123/67 94 02/09/21 08:00 58 L 02/09/21 06:55 36.9 C 51 L 17 150/82 H 96 02/09/21 03:08 36.9 C 52 L 14 109/69 92 Laboratory Results Laboratory Results - last 24 hr 02/08/21 02/08/21 02/09/21 13:10 13:10 05:49 Sodium 141 Potassium 3.9 Chloride 108 H Carbon Dioxide 30 Anion Gap 3.0 BUN 9 Creatinine 0.96 Est Cr Clr Drug Dosing 78.4 Est GFR ( Amer) 75.6 Est GFR (Non-Af Amer) 65.2 BUN/Creatinine Ratio 9.4 L Glucose 86 Calcium 8.6 Magnesium 2.4 Troponin I < 0.015 TSH 7.030 H Free T4 0.95 COVID-19 Eval Order CovFluRsv at [facility] SARS-CoV-2 (PCR) NEGATIVE Influenza Type A (PCR) Negative Influenza Type B (PCR) Negative RSV (RT-PCR) Negative PG Care Time/CCT Total # of Minutes Spent Total Time Spent with Patient: Total time spent is greater than 50% in coordination of care (as documented) at patient's floor/unit and/or counseling patient: Coding Level of Care Code 37628 Subseq Obs Care Lvl 3 Diagnoses Orthostasis I95.1 Syncope R55 Syncope type: unspecified Pulmonary embolism I26.99 Status post right partial knee replacement Z96.651 Hypothyroidism E03.9 Depression F32.9 Hypokalemia E87.6 Chronic headaches R51.9; G89.29 DVT prophylaxis Z29.9 (1) Syncope Syncope type: unspecified Qualified Code(s): R55 - Syncope and collapse
[2021-02-09] MEDS ORDERED: bisacodyL 5 MG TABEC PO ONE (13:00)
[2021-02-09] MEDS: POLYETHYLENE (MIRALAX) 17 GM PACK PO SCH ×2 (14:33→20:37)
[2021-02-09] MEDS: KETOROLAC 30 MG/ML VIAL IV SCH ×2 (14:33→20:36)
[2021-02-10] MEDS: HYDROcodone/ACETAMINOPHEN 10/325 TAB PO PRN ×4 (01:39→23:10)
[2021-02-10] MEDS: LEVOTHYROXINE SODIUM 125 MCG TABLET PO SCH (06:11)
--- NOTE | 2021-02-10 06:36 | Orthopedic Progress Note ---
Date of Service February 10, 2021 Assessment & Plan (1) Status post right partial knee replacement: With regards to her right knee she is doing as well as expected. She has some soreness but she is able to ambulate with therapy. The dressing looks good. The Silverlon dressing will stay on until Tuesday. We will continue Xarelto 10 mg daily for DVT prophylaxis. She is orthopedically stable for discharge when medically ready. Subjective He was seen and examined at bedside this morning. Overall she is doing fairly well with her knee. She is having little bit of soreness but is not too bad. She has been ambulating with therapy. She is still having some issues with lightheadedness. Review of Systems All systems reviewed & are unremarkable except as noted in HPI & below. Physical Exam On physical examination of the right knee, the Silverlon dressing is clean and dry. Her leg is out full extension. She has active dorsiflexion plantarflexion of the right ankle.. Results & Data Results & Data Laboratory Results . Diagnostic Findings . PG Care Time/CCT Total # of Minutes Spent Total Time Spent with Patient: Total time spent is greater than 50% in coordination of care (as documented) at patient's floor/unit and/or counseling patient: Coding Level of Care Code 02185 Post Operative Follow-Up Diagnoses Status post right partial knee replacement Z96.651
[2021-02-10] MEDS: COSYNTROPIN 1 MCG in SYRINGE 0 ML IV ONE ×2 (07:59→08:25)
[2021-02-10 08:49] LABS: BUN Creatinine Ratio 12.3 (10-20); Calcium 8.8 mg/dl (8.5-10.1); Creatinine Clr Calc Pharmacy 100.5 ml/min; Est GFR (African American) 101.8; Est GFR (Non-African American) 87.9
[2021-02-10] MEDS: CITALOPRAM 20 MG TAB PO SCH (09:36)
[2021-02-10] MEDS: DOCUSATE SODIUM 100 MG CAP PO SCH (09:37)
[2021-02-10] MEDS: PANTOprazole 40 MG TAB PO SCH (09:37)
[2021-02-10] MEDS: RIVAROXABAN 10 MG TABLET PO SCH (09:37)
[2021-02-10] MEDS: POLYETHYLENE (MIRALAX) 17 GM PACK PO SCH ×2 (09:38→20:21)
[2021-02-10] MEDS: HYDROCORTISONE 10 MG TAB PO SCH ×2 (12:14→20:03)
[2021-02-10] MEDS ORDERED: SODIUM CHLORIDE 0.9% 1000ML 1,000 ML IV ONE (12:15)
[2021-02-10] MEDS: FLUDROCORTISONE ACETATE 0.1 MG TAB PO SCH (13:13)
[2021-02-10] MEDS ORDERED: bisacodyL 10 MG SUPP PR STA (15:27)
[2021-02-10] MEDS ORDERED: DOCUSATE SODIUM/SENNA 50/8.6MG TAB PO SCH (21:00)
--- NOTE | 2021-02-10 21:51 | Hospitalist Progress Note ---
Date of Service February 10, 2021 Assessment & Plan (1) Adrenal insufficiency: Cosyntropin stim test results (did NOT stim >18), severe orthostasis/dizziness for several months, chronic nausea, etc -- all c/w adrenal insufficiency. Uncertain if primary or secondary but suspect latter (central). Na and K have been relatively normal. Start hydrocortisone 30mg BID - wean to 15mg qam, 5mg qpm over the next week. Start florinef 0.1mg daily in the event this is primary. ACTH level sent. Patient has h/o thyroid cancer. Mother with adrenal cancer or adrenal adenoma? Patient could have MEN syndrome. Will need pituitary w/u and CT of adrenals as outpatient. She already follows with Dr Hare, endocrinology, in [place]. Will set patient up with her shortly after d/c. Will give 1 additional fluid bolus given ongoing dizziness and +orthostatics this am. (2) Orthostasis: cause of dizziness, presyncope, and syncope. see "adrenal insufficiency" above. (3) Syncope: CTA neg for PE. echo wnl. tele wnl. syncope 2nd to severe orthostasis. FLUIDS, TEDS, and steroids (see above). (4) Pulmonary embolism: 10/2020. provoked (by history) -- due to right knee surgery in 08/2020. remains on xarelto low-dose for prophylaxis in setting of right TKR. no PE on CTA study this admission. (5) Status post right partial knee replacement: Underwent right total knee replacement 02/06/[address] Singh DVT prophy - Xarelto 10 mg appreciate ortho consult oxycodone could be worsening her dizziness and orthostasis - d/c, change to norco 10's prn - tolerating this. (6) Hypothyroidism: Remains on Synthroid 125 TSH mildly elevated Consider increase to 137mcg daily but will defer to outpatient endocrinology (7) Depression: Continue citalopram (8) Hypokalemia: replaced and resolved (9) Chronic headaches: CT head on 01/29/21 at [facility] was normal/negative deserves MRI, however, given the chronicity and recent worsening (and having nocturnal symptoms) consider prophylaxis (topamax, etc) minocin can cause pseudotumor cerebri will encourage patient to f/u with PCP for this issue (10) Constipation: dulcolax suppos x 1 maintenance - senna + miralax (11) DVT prophylaxis: xarelto likely d/c in am Admission and Anticipated Discharge Date Admission Date: February 10, 2021 Subjective still with dizziness/lightheadedness upon standing and moving. no vertigo. the dizziness is improved from admission but not resolved. nausea improved. no emesis. still no BM but no abdominal pain. right knee pain slowly improving. eating ok. costyntropin stim test -- did NOT pass; 1-hour cortisol <10. baseline cortisol was <1. patient reports mother had adrenal gland tumor that required Rx. Review of Systems Constitutional: no fever, no chills, no fatigue and no weakness Respiratory: no cough and no dyspnea Cardiovascular: no chest pain Physical Exam Constitutional: well developed and well nourished; no acute distress and no altered mental status ENMT: Mouth: + dry oral mucous membranes (improving but still present ) Respiratory: normal respiratory effort, lungs clear to auscultation Cardiovascular: Rate/Rhythm: regular rate and regular rhythm Heart Sounds: normal S1 and normal S2; no murmur Vessels: posterior tibial pulses present; no JVD Extremities: + edema (right leg 1-2+; none on left ) Gastrointestinal (Abdomen): Percussion/Palpation: abdomen nontender, no guardi ng and no hepatosplenomegaly Musculoskeletal: right knee dressing in place Neurologic: moves all extremities; no focal motor deficits Psychiatric: Orientation: alert and oriented x 3 Results & Data Results & Data ([facility]) Vital Signs (Past 12 Hours) Vital Signs Temp Pulse Pulse Resp BP Pulse Ox 02/10/21 19:33 36.7 C 57 L 18 149/86 H 97 02/10/21 15:30 60 20 114/64 02/10/21 15:21 64 02/10/21 12:00 36.9 C 58 L 18 126/77 97 02/10/21 11:55 36.6 C 61 18 114/74 97 Laboratory Results Laboratory Results - last 24 hr 02/10/21 02/10/21 02/10/21 07:51 07:51 12:32 Sodium 140 Potassium 4.0 Chloride 110 H Carbon Dioxide 28 Anion Gap 2.0 L BUN 9 Creatinine 0.75 Est Cr Clr Drug Dosing 100.5 Est GFR ( Amer) 101.8 Est GFR (Non-Af Amer) 87.9 BUN/Creatinine Ratio 12.3 Glucose 89 Calcium 8.8 Cortisol Response ACTH Pending cosyntropin stim test - baseline cortisol <1 30 min 8 60 min 6 PG Care Time/CCT Total # of Minutes Spent Total Time Spent with Patient: Total time spent is greater than 50% in coordination of care (as documented) at patient's floor/unit and/or counseling patient: Coding Level of Care Code 09554 Subseq Hosp Care Lvl 3 Diagnoses Adrenal insufficiency E27.40 Orthostasis I95.1 Syncope R55 Syncope type: unspecified Pulmonary embolism I26.99 Status post right partial knee replacement Z96.651 Hypothyroidism E03.9 Depression F32.9 Hypokalemia E87.6 Chronic headaches R51.9; G89.29 Constipation K59.00 DVT prophylaxis Z29.9 (1) Syncope Syncope type: unspecified Qualified Code(s): R55 - Syncope and collapse
[2021-02-11] MEDS: LEVOTHYROXINE SODIUM 125 MCG TABLET PO SCH (06:02)
[2021-02-11] MEDS: HYDROcodone/ACETAMINOPHEN 10/325 TAB PO PRN (06:50)
[2021-02-11] MEDS: RIVAROXABAN 10 MG TABLET PO SCH (07:27)
[2021-02-11] MEDS: PANTOprazole 40 MG TAB PO SCH (07:27)
[2021-02-11] MEDS: CITALOPRAM 20 MG TAB PO SCH (07:27)
[2021-02-11] MEDS: FLUDROCORTISONE ACETATE 0.1 MG TAB PO SCH (07:28)
[2021-02-11] MEDS: HYDROCORTISONE 10 MG TAB PO SCH (07:28)
[2021-02-11] MEDS: DOCUSATE SODIUM 100 MG CAP PO SCH (07:32)
[2021-02-11] MEDS: POLYETHYLENE (MIRALAX) 17 GM PACK PO SCH (07:32)
[2021-02-11 09:01] LABS: BUN Creatinine Ratio 12.4 (10-20); Calcium 9.2 mg/dl (8.5-10.1); Creatinine Clr Calc Pharmacy 101.8 ml/min; Est GFR (African American) 103.5; Est GFR (Non-African American) 89.3; Potassium 3.8 mmol/L (3.5-5.1)
--- NOTE | 2021-02-11 11:45 | Discharge Summary ---
Date of Service date of admission - February 08, 2021 date of discharge - February 11, 2021 Admission HPI Per Admitting Provider 55-year-old female who underwent right total knee arthroplasty on 02/07/2021. This was due to failure of outpatient management of osteoarthritis along with meniscal tear. She presents to the ER with complaints of dizziness and weakness. She has been having severe pain of the right knee with movement. She admits that when she goes to stand or sit up she gets nauseated with blurry vision and that everything nearly goes black. She did pass out once at home. She did not hit her head. She was sitting in a chair when this event occurred. She denies any headache. No chest pain or shortness of breath. Denies any nausea vomiting or diarrhea currently. No dysuria, urgency, or frequency. She took 1 dose of Xarelto yesterday. She did not take it today. She is on Xarelto for PE diagnosed 10/28/20. Principal Diagnosis severe dizziness/orthostasis/episode of syncope 2nd to adrenal insufficiency Discharge Exam Constitutional well developed and well nourished; no acute distress and no altered mental status ENMT external ear and nose normal, oropharynx normal Respiratory normal respiratory effort, lungs clear to auscultation Cardiovascular Rate/Rhythm: regular rate and regular rhythm Heart Sounds: normal S1 and normal S2; no murmur Vessels: posterior tibial pulses present; no JVD Extremities: + edema (right leg 2+; none on left ) Gastrointestinal (Abdomen) Inspection/Auscultation: normal bowel sounds; abdomen not distended Percussion/Palpation: abdomen nontender, no guarding and no hepatosplenomegaly Musculoskeletal right knee dressings in place; mild swelling of right knee Skin no rashes, warm and dry Neurologic moves all extremities; no focal motor deficits Psychiatric Orientation: alert and oriented x 3 Discharge Data Allergies Allergy/AdvReac Type Severity Reaction Status Date / Time Penicillins Allergy Severe HIVES Verified 02/08/21 11:06 morphine AdvReac Severe N/V Verified 02/08/21 11:06 Consultations Orthopedic Surgery - Dr Viral Singh Ordered Studies 02/08/21 10:53 CT angio chest PE protocol Stat * no PE * 3mm RML pulmonary nodule Echocardiogram - * EF 65% * normal valve function * no regional wall motion abnormalities Cosyntropin Stimulation test (1mcg low-dose protocol): Baseline cortisol - 0.78 30min cortisol - 8.34 60min cortisol - 6.88 Hospital Course (1) Adrenal insufficiency: This was the cause of her severe dizziness/orthostasis/brief episode of pre-hospital syncope. Patient reported severe orthostasis/dizziness for several months, chronic nausea, and simply feeling poorly. Outpatient blood work had revealed hyponatremia at some point in the recent past. Symptoms were consistent with adrenal insufficiency. Uncertain if primary or secondary (central). Random cortisol level this admission was 1.5. Records revealed that she had received a 1-time dose of IV dexamethasone for her recent right knee replacement on 02/06/21. Thus, to ensure the diagnosis of adrenal insufficiency, a formal cosyntropin stimulation test was performed this admission. This indeed was markedly abnormal; baseline cortisol during the stimulation test was <1, and her highest cortisol level was 8. Patient required copious IV fluids during this admission for persistent orthostasis. She was initiated on hydrocortisone and florinef. Her orthostasis, dizziness, and overall constitution improved with fluids/steroids. ACTH level was sent and was pending at discharge. Patient has h/o thyroid cancer. Mother with adrenal cancer or adrenal adenoma by the patient's report. Patient could have MEN syndrome?? Patient will most likely need pituitary w/u and CT of adrenals as outpatient. She already follows with Dr Perez, endocrinology, in [place]. Patient was given an appointment with Dr Hare for shortly after discharge. At discharge the following was advised - * hydrocortisone taper starting with 30mg BID, and tapering to 15mg qam and 5mg qafternoon * fludrocortisone 0.1mg qam * f/u with Dr Hare for additional work-up (2) Orthostasis: cause of dizziness, presyncope, and syncope. see "adrenal insufficiency" above. resolved. (3) Syncope: CTA neg for PE. echo wnl. telemetry wnl. syncope 2nd to severe orthostasis. Received copious IV hydration and steroids while here. See above. (4) Pulmonary embolism: 10/2020. provoked (by history) -- due to right knee surgery in 08/2020. remains on xarelto low-dose for prophylaxis in setting of right TKR. no PE on CTA study this admission. continue xarelto 10mg daily. (5) Status post right partial knee replacement: Underwent right knee replacement 02/06/[address] Viral Singh. DVT prophylaxis - Xarelto 10 mg daily. Seen by orthopedics this admission - they were satisfied with the condition of her right knee. There was some concern that oxycodone for her right knee pain could have been worsening her dizziness and orthostasis. Thus, the oxycodone was discontinued and changed to norco 10's prn - tolerated this without side effects. (6) Hypothyroidism: Remains on Synthroid 125mcg daily. TSH mildly elevated at 7. Defer to outpatient endocrinology for synthroid adjustment or simply repeating the TSH. (7) Depression: Continue citalopram. (8) Hypokalemia: replaced and resolved. (9) Chronic headaches: CT head on 01/29/21 at [facility] was normal/negative. Deserves MRI brain, however, given the chronicity and recent worsening of her headaches (and having nocturnal symptoms). Pituitary MRI also likely to be needed given her new-onset adrenal insufficiency. Consider prophylaxis (topamax, etc). Minocin can cause pseudotumor cerebri and chronic headaches. I encouraged patient to f/u with PCP for this issue alfred. Headaches did improve with treatment of her adrenal insufficiency while here fortunately. (10) Constipation: Opiate-induced. Improved s/p multiple bowel agents while here. Needs maintenance post-discharge - encouraged senna + miralax. (11) DVT prophylaxis: xarelto 10mg daily. (12) Pulmonary nodule: 3mm, RML, seen incidentally on CTA chest. Referral made to [facility] Pulmonary [facility]odule Program to see if repeat imaging will be needed in future. Total Time Total Time Spent Total Time Spent (In Minutes): 50 Total Time Includes: Examination of the Patient, Discharge Planning and Medication Reconciliation Discharge Plan Discharge Items Patient Disposition: Home - Self-Care Reason For Visit: SYNCOPE (passing out spell) Discharge Diagnosis: Syncope, Chronic Dizziness/lightheadedness -- due to "adrenal insufficiency" (low levels of cortisol). This condition caused a large drop in blood pressure with standing leading to your dizziness/lightheadedness. Improved with IV fluids and steroids. Activity: As commented below Activity Comment: please follow any previous activity instructions outlined by Dr Singh Bathing Comment: please follow any previous instructions from Dr Singh re: bathing Exercise Comment: follow instructions from Dr Singh Non-emergency contact: Primary Care Provider and Specialist Call non-emergency contact if: you have any medication questions, your symptoms worsen, your pain is not controlled, your pain is worsening, you have a fever, your wound has increased redness, your wound has increased drainage and your wound pain has increased Follow-up/Referrals: Lorraine Hare MD [Other] - 02/16/21 1:30 pm ([facility], THIRD FLOOR. IF YOU WOULD NEED TO RESCHEDULE THIS APPOINTMENT, PLEASE CALL THE OFFICE. ) Viral Singh DO [Physician] - (keep any scheduled follow-up appointment with Dr Singh for your right knee) Roel Huynh M.D. [Primary Care Provider] - (PLEASE CALL YOUR PRIMARY CARE PROVIDER TO SET UP A DISCHARGE FOLLOW-UP APPOINTMENT WITHIN 7-10 DAYS.) Diet: Regular Addtl Attending Provider Instructions: Juan Ramon Wang presented to the hospital after recent right knee replacement with severe dizziness, weakness, and brief passing out spell. You also had severe pain in your right knee. When we checked your sitting and standing blood pressures they immediately fell (30-40 point drop). This was the cause of your weakness and severe dizziness/lightheadedness. We call this "orthostasis." We treated the above with large amounts of IV fluids and ultimately steroids. A screening test for adrenal insufficiency was very abnormal - your random cortisol level was quite low 1.5. You had received 1 dose of IV dexamethasone around the time of your surgery for the knee and thus it is possible that it caused the random cortisol to be low. Thus, to truly test you for adrenal insufficiency, we performed a 'cosyntropin stimulation test' on 02/10/21. This was markedly abnormal suggesting that you indeed have adrenal insufficiency. We started you on hydrocortisone and florinef on 02/10/31. An ACTH level was sent off as well. Your blood pressures, heart rates, hydration, and symptoms are all improved at this time. Recommendations - 1. 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 fludrocortisone (florinef) 0.1mg daily every morning; start AM of 02/12/21 3. stop the oxycodone 4. for pain - may take hydrocodone/acetaminophen, 1/2 tab to 1 full tablet every 6 hours as needed * do not drive while taking narcotic pain medication * do not drink alcohol while taking narcotic pain medication * the hydrocodone as tylenol in it; thus, do not take extra gavp-nos-yzhpbfy tylenol while on the pain killer 5. for constipation - * nrqg-azv-pmdxgnk miralax once-twice daily * nlad-tyd-aivogxw senna once daily * alwd-pau-rkiwzdv colace once-twice daily * you can take any combination of the above as needed/as desired for constipation 6. follow any previous instructions regarding activities, your right knee dressing, restrictions, etc from Dr Singh 7. please talk with your family doctor about your headaches. Of note - minocin can cause a rare type of headache. You would need an MRI of the head and eye exam to determine if the minocin (minocycline) is contributing to your heada ches. 8. Please have Dr Hare repeat your thyroid level (TSH=7). It was mildly high this admission suggesting you might need a small dose increase in your thyroid medication. For now just have Dr Hare repeat your blood work. Follow-up - see separate section Return to [facility] if - * you have fevers over 100.5 degrees * you have any concern of infection from the right knee (redness, drainage, etc) * you have worsening lightheadedness/dizziness despite your medications * you have shortness of breath * any other concerns It was my pleasure to care for you! -Dr Miller Pending Studies at Discharge: Yes Studies:: ACTH level for the adrenal insufficiency Stand-Alone Forms: My [facility], Smoking Cessation Medications and DC Order Prescriptions: New polyethylene glycol 3350 [Miralax] 17 gram Powder In Packet 17 g PO DAILY Qty: 30 RF: 0 hydrocodone-acetaminophen 10-325 mg Tablet 0.5 - 1 tab PO Q6H PRN (Reason: pain) Qty: 20 RF: 0 fludrocortisone 0.1 mg Tablet 0.1 mg PO QAM Qty: 30 RF: 2 hydrocortisone 5 mg tablet 5 mg PO DIRECTED Qty: 60 RF: 0 Continued citalopram 20 mg Tablet 30 mg PO QAM RF: 0 esomeprazole magnesium 40 mg Capsule,Delayed Release(Dr/Ec) 40 mg PO QAM RF: 0 minocycline 50 mg Tablet 50 mg PO QAM RF: 0 famotidine 40 mg Tablet 40 mg PO QPM PRN (Reason: Heartburn) RF: 0 docusate sodium [Colace] 100 mg Capsule 100 mg PO DAILY RF: 0 Xarelto 20 mg Tablet 10 mg PO QAM 10 Days Qty: 0 RF: 0 levothyroxine [Synthroid] 125 mcg Tablet 125 mcg PO QAM RF: 0 Discontinued oxycodone 5 mg Tablet 5 mg PO Q4H PRN (Reason: pain) Qty: 30 RF: 0 ibuprofen [Advil] 200 mg Tablet 400 mg PO DAILY PRN (Reason: Pain) RF: 0 Discharge Orders: Discharge Order (Routine); Ordered 02/11/21 Ordered By: Fernando Goodwin/Other Patient Handouts: Secondary Adrenal Insufficiency Admission Data Admit Date/Time: 02/10/21 18:42 Attending Provider: Fernando Miller Admit Provider: Todd Patel Primary Care Provider: Roel Huynh Other Providers: Todd Patel ; Viral Singh Other Interventions: Discharge Summary Assessment (RN) Last Done: 02/11/21 12:16 Coding Level of Care Code D/C Day Management >30 mins Diagnoses Adrenal insufficiency E27.40 Orthostasis I95.1 Syncope R55 Syncope type: unspecified Pulmonary embolism I26.99 Status post right partial knee replacement Z96.651 Hypothyroidism E03.9 Depression F32.9 Hypokalemia E87.6 Chronic headaches R51.9; G89.29 Constipation K59.00 DVT prophylaxis Z29.9 Pulmonary nodule R91.1
== END 2021-02-11 13:00 | disposition home or self-care (01) | DRG 645 ==
LOC: 2S 10:40 → ED 10:40 → SUATTDRO 14:17 → 2S 15:58 → 2W 02-09 12:51

== ENCOUNTER 2022-08-20 11:17 | Observation (INO) ==
--- NOTE | 2022-07-16 15:10 | PAT Medication Instructions ---
Medication Instructions Date of Service July 16, 2022 Home Medications Medication Instructions Recorded fludrocortisone 0.1 mg tablet 0.1 mg PO QAM #30 tabs 02/11/21 hydrocortisone 5 mg tablet 5 mg PO DIRECTED #60 tabs 02/11/21 clindamycin HCl 300 mg capsule 600 mg PO ONCE #4 caps 03/19/22 citalopram 20 mg tablet 15 mg PO QAM esomeprazole magnesium 40 mg capsule,delayed release 40 mg PO QAM docusate sodium 100 mg capsule (Colace) 100 mg PO QAM fludrocortisone 0.1 mg tablet 0.1 mg PO QAM hydrocortisone 5 mg tablet 5 mg PO DIRECTED clindamycin HCl 300 mg capsule 600 mg PO ONCE acetaminophen 500 mg tablet 1,000 mg PO Q6H PRN cholecalciferol (vitamin D3) 50 mcg (2,000 unit) capsule (Vitamin D3) 50 mcg PO QAM fiber 1 tab PO QAM ibuprofen 200 mg tablet (Advil) 400 mg PO Q6H PRN levothyroxine 137 mcg tablet 137 mcg PO QAM Continue as directed fludrocortisone 0.1 mg tablet 0.1 mg PO QAM-check with prescriber for any additional recommendations hydrocortisone 5 mg tablet 5 mg PO DIRECTED-check with prescriber for any additional recommendations clindamycin HCl 300 mg capsule 600 mg PO ONCE ASK your surgeon for instructions ibuprofen 200 mg tablet (Advil) 400 mg PO Q6H PRN DO NOT take the morning of surgery docusate sodium 100 mg capsule (Colace) 100 mg PO QAM cholecalciferol (vitamin D3) 50 mcg (2,000 unit) capsule (Vitamin D3) 50 mcg PO QAM fiber 1 tab PO QAM Take morning of surgery With a small sip of water, OTHERWISE NOTHING TO EAT OR DRINK AFTER MIDNIGHT: citalopram 20 mg tablet 15 mg PO QAM esomeprazole magnesium 40 mg capsule,delayed release 40 mg PO QAM acetaminophen 500 mg tablet 1,000 mg PO Q6H PRN(if needed) levothyroxine 137 mcg tablet 137 mcg PO QAM Take evening before surgery acetaminophen 500 mg tablet 1,000 mg PO Q6H PRN(if needed) Other Notes If you have any questions please call us at [phone] or [phone] or [phone] or [phone]
--- NOTE | 2022-07-22 14:25 | Anesthesiology Consultation ---
Date of Service July 22, 2022 Assessment & Plan (1) Encounter for pre-operative examination: - scop patch Rx for am DOS. - upcoming dental procedure: pt aware she needs to contact surgeon's office to discuss planned procedure. - regular steroid use: Tiago's disease. Pt instructed to contact prescriber regarding stress dosing recommendations. She verbalized understanding and agreement. - Outpatient joint assessment: Patient is currently scheduled for inpatient pathway. If re-evaluated pending system levels during current pandemic/surgeon requests outpatient pathway, per Dr. Hemphill patient is acceptable candidate for outpatient joint program from anesthesia standpoint pending surgeon's office assessment of pt motivation/support/completion of same day joint program preop requirements. He advised pt acceptable to proceed with surgery overall. - COVID screening: Per assessment on 07/22/2022: Travel screen negative, no known COVID-19 positive contacts or current COVID-19 related symptoms in past 2 weeks. To surgeon's discretion if preop COVID testing needed. Chart Review Chart Review: Acceptable Risk for Surgery and Patient seen in Pre Admission Testing Teaching & Discussion Pre-Anesthesia Teaching/Discussion Notes: Instructed NPO after midnight before surgery, except medications with 15 cc of water. Medication instructions provided according to the PAT guidelines. History Surgery Operation Date: 08/20/22 08:50 Proposed Procedures p Right Total Shoulder Arthroplasty versus - Viral Singh DO s Reverse Total Shoulder Arthroplasty - Viral Singh DO Height/Weight Height: 5 ft 10 in Weight: 100.3 kg Allergies Allergy/AdvReac Type Severity Reaction Status Date / Time Penicillins Allergy Severe HIVES Verified 07/15/22 15:47 morphine AdvReac Severe N/V Verified 07/15/22 15:47 Medications Home Medications Medication Instructions Recorded Confirmed Last Taken citalopram 20 mg tablet 15 mg PO QAM 01/05/21 07/15/22 02/07/21 esomeprazole magnesium 40 mg 40 mg PO QAM 01/05/21 07/15/22 02/07/21 capsule,delayed release docusate sodium 100 mg capsule 100 mg PO QAM 02/06/21 07/15/22 02/07/21 (Colace) fludrocortisone 0.1 mg tablet 0.1 mg PO QAM #30 tabs 02/11/21 07/15/22 Unknown hydrocortisone 5 mg tablet 5 mg PO DIRECTED #60 tabs 02/11/21 07/15/22 Unknown clindamycin HCl 300 mg capsule 600 mg PO ONCE #4 caps 03/19/22 07/15/22 Unknown acetaminophen 500 mg tablet 1,000 mg PO Q6H PRN Pain 07/15/22 07/15/22 Unknown cholecalciferol (vitamin D3) 50 50 mcg PO QAM 07/15/22 07/15/22 Unknown mcg (2,000 unit) capsule (Vitamin D3) fiber 1 tab PO QAM 07/15/22 07/15/22 Unknown ibuprofen 200 mg tablet (Advil) 400 mg PO Q6H PRN Pain 07/15/22 07/15/22 Unknown levothyroxine 137 mcg tablet 137 mcg PO QAM 07/15/22 07/15/22 Unknown Past Medical History Medical History (Updated 07/22/22 @ 14:52 by Kathi Heaton PA-C) Addisons disease Anxiety Cancer THYROID Concussion 04/2022 FELL AND STRUCK FACE ON 2 X 4 BOARD-DID NOT LOSE CONSCIOUSNESS- DEVELOPED HEADACHES THAT HAVE SINCE RESOLVED GERD (gastroesophageal reflux disease) controlled, stable per pt History of COVID-19 DX'D END 09/2021 S-ADMITTED [facility] WITH BILATERAL PNEUMONIA- denies intubation-WENT HOME ON OXYGEN FOR A FEW WEEKS-RESOLVED SYMPTOMS Hx of thyroid cancer resolved 2009 no chemo/ had radioactive iodine Pulmonary embolism HX 10/28/2020-S/P SURGERY? 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 Exercise / Class Metabolic Activity II 4-5 Yardwork/Stairs/Walk up hill (denies CP or SOB with 1 FOS) Past Family History Family History Sister Diabetes Family history of reaction to anesthesia PONV Mother Family history of reaction to anesthesia PONV Sister Family history of reaction to anesthesia PONV Sister Family history of reaction to anesthesia PONV Past Surgical History Surgical History (Updated 07/22/22 @ 14:50 by Kathi Heaton PA-C) H/O total thyroidectomy 2009-RADIOACTIVE IODINE [place] History of arthroscopy x1left shoulder /x3 right shoulder History of bilateral tubal ligation History of bowel resection FOR DIVERTICULITIS History of colonoscopy 2020 History of esophagogastroduodenoscopy (EGD) History of repair of rotator cuff bilateral Hx of foot surgery right no pins or metal Hx of prior ablation treatment uterine Nausea and vomiting after administration of anesthetic agent typically has scop patch, denies adverse effects S/P arthroscopy of right shoulder x2. 10/10/19: LMA#4 + PNB. 08/28/20. S/P right knee arthroscopy Status post right partial knee replacement (~01/2021) 02/06/21 [facility]: SAB at L3-L4 1 attempt + PNB. No postop issues per anesthesia progress note. Past Anesthesia History No Hx of Anesthesia Complications and Other (mother and sister with PONV) History of PONV History of PONV (requests scop patch) and Hx of Motion Sickness Social History Smoking Status: Never smoker Do You Dip or Chew Tobacco: No Hx Alcohol Use: Yes Alcohol type: hard liquor alcohol intake frequency: other Alcohol Intake Frequency Comment: RARELY Hx Substance Use: No substance use type: does not use Review of Systems Occasional snoring, denies witnessed apneas. Patient denies chest pain, shortness of breath, dyspnea on exertion, fever, chills, cough, wheezing, or palpitations. Physical Exam Vital Signs Vitals BP 128/82 P 79 TEMP 98.1 SP02 98% on RA RESP 18 Physical Full cervical extension range of motion without pain TMD 3.5 finger breadths Mallampati Score 3 Dentition: intact, temporary crown, denies chipped or loose teeth, implants or bridges Lungs: normal respiratory effort. Clear throughout to auscultation, no adventitious breath sounds Cardiac: regular rate and rhythm, no murmurs noted Carotid arteries: negative bruit bilat Lab Results Anesthesia Preop Results Results Anesthesia Widget: PT 10.2 Seconds (9.0-12.0) 07/22/22 PTT 25.8 Seconds (21.0-31.0) 07/22/22 INR 1.0 (0.9-1.1) 07/22/22 Blood Type O Positive 07/22/22 Antibody Screen NEGATIVE 07/22/22 Testing Laboratory Results 06/27/2022 WBC: 9 H/H: 12/38 PLATELETS: 277 SODIUM: 139 POTASSIUM: 3.7 CHLORIDE: 104 CO2: 24 BUN: 9 CREATININE: 0.8 GLUCOSE: 94 UA: yellow, clear, trace blood, small esterase Electrocardiogram Date: 04/26/22 NSR, rate 66 bpm Chest X-Ray Date: 07/23/22 Lung volumes are normal. Lungs are clear. There is no pneumothorax or pleural effusion. Cardiac size is normal. Mediastinal contours are normal. There is no evidence for pulmonary edema. IMPRESSION: No acute cardiopulmonary findings. Echocardiogram Date: 02/09/21 EF 60-65% No regional wall motion abnormalities No significant valve pathology
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
[~2022-08-20 11:17] MED LIST changes: +ACETAMINOPHEN 500 MG TAB PO SCH; -BIOT1CAP3 PO; +BUPIVACAINE 0.5 % 5 MG/1 ML PF 10ML VIAL ONE; -CITA20TA9 PO; +GABAPENTIN 600 MG DOSE PO SCH; +Ketorolac (*for OR use only*) 30 MG, dexAMETHasone 4 MG, KETAMINE HCL (**OR use only) 1... INFIL SCH; -LEVO175T PO; +LR 15ML/HR IV SCH; +LR 60ML/HR IV SCH; +METOCLOPRAMIDE HCL 10 MG TABLET PO SCH; -NXM/40 PO; -PROB1TAB16 PO; +Scopolamine 1 MG TDSY TD SCH; +TRANEXAMIC ACID 1,000 MG **IV Intra-op IV SCH; +TRANEXAMIC ACID 1,000 MG **IV Pre-op IV SCH; +ceFAZolin 2000MG 2,000 MG/15 ML SYR IV SCH; +dexAMETHasone 4 MG TAB PO SCH
--- NOTE | 2022-08-20 13:54 | History & Physical Bridge Note ---
Date of Service August 20, 2022 History & Physical Bridge Note I have examined the patient, reviewed the History & Physical and in the interval since the performance of the History & Physical I have noted the following changes of clinical significance: no changes noted
[2022-08-20] MEDS ORDERED: ORTHO JOINT ANESTHETIC ONE (14:29)
[2022-08-20] MEDS ORDERED: fentaNYL citrate 100 MCG/2 ML VIAL ONE (14:42)
[2022-08-20] MEDS ORDERED: MIDAZOLAM HCL 1 MG/ML 2ML VIAL ONE (14:42)
[2022-08-20] MEDS ORDERED: DEXAMETHASONE SOD INJ 4 MG/ML VIAL ONE (15:39)
[2022-08-20] MEDS ORDERED: PROPOFOL IV EMULSION 10 MG/ML 20 ML VIAL IV ONE (15:39)
[2022-08-20] MEDS ORDERED: ONDANSETRON INJ 2 MG/ML 2 ML VIAL ONE ×2 (15:39)
[2022-08-20] MEDS ORDERED: Scopolamine CHECK PATCH PLACEMENT SCH (16:00)
[2022-08-20] MEDS ORDERED: ePHEDrine sulfate 50 MG/ML AMP ONE (16:04)
[2022-08-20] MEDS ORDERED: GLYCOPYRROLATE 0.2 MG/ML VIAL ONE (16:04)
--- NOTE | 2022-08-20 16:35 | Operative Report ---
PG Post Operative Report Pre & Post Diagnosis Operation Date: 08/20/22 14:00 Pre-Op Diagnosis: Right Shoulder Osteoarthritis Post-Op Diagnosis: Right Shoulder Osteoarthritis I identified the patient and participated in the time-out.: Yes Procedure Operation Date: 08/20/22 14:00 Actual Procedures p Right Total Shoulder Arthroplasty (Right) - Viral Singh DO Surgeon Viral Singh DO Retention Representative Viral Zepeda PA-C Estimated Blood Loss 200 Findings Consistent with Post-Op Diagnosis Specimens Right humeral head Description of Procedure Implants used: I used a [employer] Comprehensive total shoulder arthroplasty system with a size 11 press fit micro humeral stem, a size 46 x 18 eccentric humeral head, and a 2 glenoid with a trabecular metal peg. The glenoid was cemented in place with Palacos G cement. Jade arrived at [facility] for the above procedure. She was seen in the preoperative holding area and the operative extremity was identified and signed. She was given a preoperative antibiotic, TXA, and an interscalene nerve block. She was taken back to the operating room, laid on table in supine position, and put under general anesthesia. She was then put into the beachchair position. The shoulder was then prepped and draped in sterile fashion. A timeout was done and the patient and the operative extremity was properly identified. A deltopectoral approach was used. Dissection was taken down through the fascia and the deltoid was retracted laterally and the conjoined tendon was retracted medially. The anterior shoulder was exposed. The biceps tendon was previously tenodesed. The subscapularis was then released off the lesser tuberosity with a centimeter of cuff tissue remaining. The inferior capsule was released and the humeral head was dislocated. The rotator cuff was inspected and intact. A canal finding reamer was sent down the center of the humeral canal. Sequential reaming up to a size 11 reamer was done. Offset reamer a proximal humeral resection guide was placed. The proximal humerus was resected at 135 of inclination and 30 of retroversion. Inferior osteophytes were then removed and the glenoid was exposed. Time was spent doing an appropriate labral release. The glenoid measured to be a size 2. A 3.2 mm Steinmann pin was placed in the central hole of the glenoid vault pin guide. The glenoid was then reamed with a propeller reamer. The central post cutter was then used to prepare for the central boss. The cannulated peripheral peg drill guide was then placed and 3 peg holes were drilled. The final size 2 glenoid was then cemented in place with Palacos G cement. Surrounding soft tissues were then injected with 100 cc of an orthopedic pain control cocktail. Once cement had dried the proximal humerus was once again exposed. Sequential broaching of the humerus up to a size 11 broach was done. Off that broach a size 46 x 18 eccentric humeral head was trialed. The shoulder was then reduced, brought through a full range of motion, and felt to be stable. The shoulder was then dislocated and the broach was removed. The final size 11 micro humeral stem implant was then impacted into place. A size 46 x 18 eccentric humeral head was then impacted onto the humeral stem. The shoulder was then reduced and once again brought through a full range of motion and felt to be stable. The subscapularis was then tenodesed back to the lesser tuberosity with transosseous FiberWire sutures and side to side sutures with the arm in 45 of external rotation. 2 sutures were placed in the lateral rotator interval. A dilute betadyne lavage was then done for 3 minutes. The joint was then irrigated with normal saline solution. Hemostasis was obtained. The interval was closed with 2-0 Vicryl suture. The skin was closed with 2-0 Vicryl and urszula. A Silverlon dressing was placed and the arm was rested in a regular arm sling. She was then extubated and transferred to a hospital bed. She was taken to the postanesthesia care unit in stable condition. She tolerated the procedure well. Viral Zepeda PA-C, was present for the entire procedure. He was critical for patient positioning, prepping, draping, retraction exposure, wound closure and application of sterile dressing. I attest to the content of the Intraoperative Record and any orders documented therein. Any exceptions are noted below.
[2022-08-20] MEDS ORDERED: fentaNYL citrate 100 MCG/2 ML VIAL IV PRN (17:11)
[2022-08-20] MEDS ORDERED: ONDANSETRON INJ 2 MG/ML 2 ML VIAL IV PRN ×2 (17:11→18:02)
[2022-08-20] MEDS ORDERED: ATROPINE SULFATE 0.1 MG/ML 10ML SYR IV PRN (17:11)
[2022-08-20] MEDS ORDERED: ePHEDrine sulfate 50 MG/ML AMP IV PRN (17:11)
--- NOTE | 2022-08-20 17:20 | XRay Report ---
XR shoulder RT min 2V routine CLINICAL HISTORY: Post shoulder surgery COMPARISON: Right shoulder radiographs March 16, 2022. FINDINGS: Alignment of the right shoulder arthroplasty is anatomic. There is no periprosthetic fract ure. There are skin urszula. No unexpected radiopaque foreign bodies are identified. IMPRESSION: Expected findings following right shoulder arthroplasty. ACT 112: Negative or not required by law. Electronically signed by: Ben Reyes M.D. 08/20/2022 5:18 PM
--- NOTE | 2022-08-20 17:49 | Anesthesiology Progress Note ---
Date of Service August 20, 2022 Anesthesia Post Procedure Vital Signs Vital Signs: Temp Pulse Pulse Resp BP BP Pulse Ox 08/20/22 17:45 75 15 137/73 94 08/20/22 17:30 78 15 129/73 94 08/20/22 17:20 97.5 F L 74 15 139/75 94 08/20/22 17:10 77 15 139/77 95 08/20/22 17:00 73 15 145/72 H 99 08/20/22 16:54 96.8 F L 87 20 146/71 H 99 08/20/22 11:56 98.2 F 75 20 186/86 H 98 O2 Del Method O2 Flow Rate 08/20/22 17:45 Room Air 08/20/22 17:30 Room Air 08/20/22 17:20 Room Air 08/20/22 17:10 Room Air 08/20/22 17:00 Oxymask 5 08/20/22 16:54 Oxymask 5 08/20/22 11:56 Room Air Pain Intensity Right Shoulder: Pain Intensity: 4 Transfer of Care Handoff Completed per policy Notes Mental Status: alert / awake / arousable and participated in evaluation Patient Amnestic to Procedure: Yes Nausea / Vomiting: adequately controlled Pain: adequately controlled Airway Patency, RR, SpO2: stable & adequate BP & HR: stable & adequate Hydration State: stable & adequate Anesthetic Complications: no major complications apparent and Pt Satisfied with anesthetic care
[2022-08-20] MEDS ORDERED: bisacodyL 10 MG SUPP PR PRN (18:02)
[2022-08-20] MEDS ORDERED: METOCLOPRAMIDE HCL INJ 5 MG/ML 2 ML VIAL IV PRN (18:02)
[2022-08-20] MEDS ORDERED: NALOXONE HCL 0.4 MG/1 ML VIAL/CARP IV PRN (18:02)
[2022-08-20] MEDS ORDERED: HYDROmorphone INJ 0.5 MG/0.5 ML SYR IV PRN (18:02)
[2022-08-20] MEDS ORDERED: MAGNESIUM HYDROXIDE SUSP 30 ML UDC PO PRN (18:02)
[2022-08-20] MEDS: oxyCODONE HCL IR 5 MG TAB (IMMEDIATE RELEASE) PO PRN ×2 (18:41→22:51)
[2022-08-20] MEDS: SODIUM CHLORIDE 0.9% 1000ML 1,000 ML IV SCH (18:44)
[2022-08-20] MEDS: KETOROLAC 30 MG/ML VIAL IV SCH (19:56)
[2022-08-20] MEDS: DOCUSATE SODIUM 100 MG CAP PO SCH (19:57)
[2022-08-20] MEDS ORDERED: SENNA 8.6 MG TAB PO SCH (21:00)
[2022-08-20] MEDS: ceFAZolin 2000MG 2,000 MG/15 ML SYR IV SCH (22:13)
[2022-08-20] MEDS: ACETAMINOPHEN 500 MG TAB PO SCH (22:14)
[2022-08-21] MEDS: KETOROLAC 30 MG/ML VIAL IV SCH ×2 (01:27→06:10)
[2022-08-21] MEDS: oxyCODONE HCL IR 5 MG TAB (IMMEDIATE RELEASE) PO PRN ×2 (04:11→11:55)
[2022-08-21] MEDS: SODIUM CHLORIDE 0.9% 1000ML 1,000 ML IV SCH (04:12)
[2022-08-21] MEDS: ACETAMINOPHEN 500 MG TAB PO SCH (06:07)
[2022-08-21] MEDS: ceFAZolin 2000MG 2,000 MG/15 ML SYR IV SCH (06:09)
[2022-08-21] MEDS ORDERED: dexAMETHasone 4 MG TAB PO SCH (08:00)
[2022-08-21] MEDS: DOCUSATE SODIUM 100 MG CAP PO SCH (08:12)
[2022-08-21] MEDS ORDERED: FLUDROCORTISONE ACETATE 0.1 MG TAB PO SCH (09:00)
[2022-08-21] MEDS ORDERED: MULTIVITAMIN TAB PO SCH (09:00)
[2022-08-21] MEDS ORDERED: CITALOPRAM 20 MG TAB PO SCH (09:00)
[2022-08-21] MEDS ORDERED: LEVOTHYROXINE SODIUM 137 MCG TABLET PO SCH (09:00)
--- NOTE | 2022-08-21 09:23 | Orthopedic Progress Note ---
Date of Service August 21, 2022 Assessment & Plan (1) Status post replacement of right shoulder joint: Overall she is doing fairly well. She is not any much pain in the right shoulder. She will be seen by physical therapy today for ambulation and range of motion exercises. She can be discharged home later today. She will follow- up with orthopedics in 2 weeks. Anjelica Hansen was seen and examined at bedside this morning. Overall she is doing very well. She is not having much pain in the right shoulder. She was able to get some sleep last night. She has no complaints.. Review of Systems All systems reviewed & are unremarkable except as noted in HPI & below. Physical Exam On physical examination of right shoulder, the dressing is clean and dry. She has active motion of her hand and her wrist. She is wearing her sling as instructed.. Results & Data Results & Data Laboratory Results . Diagnostic Findings Postoperative x-rays of the right shoulder show the prosthesis to be in anatomic alignment without any evidence of fracture, desiccation, or loosening. PG Care Time/CCT Total # of Minutes Spent Total Time Spent with Patient: Total time spent is greater than 50% in coordination of care (as documented) at patient's floor/unit and/or counseling patient: Coding Level of Care Code 77600 Post Operative Follow-Up Diagnoses Status post replacement of right shoulder joint Z96.611
--- NOTE | 2022-08-21 09:25 | Discharge Summary ---
Date of Service August 21, 2022 Admission HPI (Per Admitting) Jade is a pleasant 57-year-old female who I did a right shoulder arthroscopy on in October 2019. During the procedure, I foundadvanced arthritis of the humeral head. I have been giving her serial injections for the past 2 years. X-rays have shown worsening osteoarthritis. After failing conservative treatment, she has elected to proceed with a right total shoulder arthroplasty. Admission Exam (Per Admitting) On physical examination of the right shoulder, she has about 140 degrees of forward elevation 140 degrees of abduction. She has 5 5 motor strength throughout. Pain over the glenohumeral joint line.. Principal Diagnosis Same as "Discharge Diagnosis" noted below under Discharge Instructions. Discharge Exam On physical examination of right shoulder, the dressing is clean and dry. She has active motion of her hand and her wrist. She is wearing her sling as instructed.. Discharge Data Procedures Performed Operation Date: 08/20/22 14:00 Actual Procedures p Right Total Shoulder Arthroplasty (Right) - Viral Singh DO Ordered Studies 08/20/22 05:00 US - OR guided needle placemen Routine Hospital Course (1) Status post replacement of right shoulder joint: On August 20, 2022 Jade arrived to [facility] and underwent a right shoulder replacement without complication. She had a general anesthetic and a right interscalene nerve block. Postoperatively she was placed in a sling and transferred to the general orthopedic floors. Her hospital course was uneventful. On postop day #1, her vital signs were stable and her pain was well controlled. She was able to participate well with physical therapy doing ambulation and range of motion exercises. She was then discharged home. She will follow-up with orthopedics in 2 weeks. PG Care Time/CCT Total # of Minutes Spent Total Time Spent with Patient: Total time spent is greater than 50% in coordination of care (as documented) at patient's floor/unit and/or counseling patient: Discharge Plan Discharge Items Patient Disposition: Home - Home Health Services Reason For Visit: Right Shoulder Osteoarthritis Discharge Diagnosis: Right shoulder replacement Activity: Per Instructions section Non-emergency contact: Surgeon Call non-emergency contact if: your wound has increased redness and your wound has increased drainage Follow-up/Referrals: Kallie Giraldo PA-C [Primary Care Provider] - Diet: Regular Addtl Attending Provider Instructions: Activity and Therapy Recommendations: * If you are using [facility] then therapy will be provided at your home until they feel you have accomplished all of your goals. * If you are using [facility] then Physical Therapy will be provided until they feel you are ready to start Outpatient Physical Therapy. * If you are not using home therapy then Outpatient Physical Therapy should start about 3-5 days from your day of surgery. Therapy will last about 8-12 weeks * Wear your sling for 3 weeks, unless otherwise instructed. You may remove your sling to shower and to dress, but otherwise, you should be in your sling at all times, including while sleeping * The shoulder replacement is very stable and you can use your hand while in the sling * You were shown a series of exercises in the hospital. Do these exercises daily including the exercises you were shown in physical therapy. Medications: * Narcotic You will likely be sent home from the hospital with a prescription for the narcotic pain medication that worked best throughout your stay. * Other medications may be prescribed for specific circumstances. If you have any questions, please call the office at . * Resume previous home medications unless otherwise instructed Dressing Care: Leave the Silverlon dressing in place for 7 days. After 7 days you may remove the dressing. If the incision is not draining then you may leave the urszula open to air. If there is a little bit of drainage or if the urszula are getting stuck on your clothing then cover the incision with a dry dressing. The urszula will be removed at your 2 week follow-up appointment. Showering: You may shower with the Silverlon dressing in place. Do not let the shower spray hit the dressing directly. Pat the Silverlon dressing dry. If the dressing becomes wet underneath, then simply remove the dressing. Keep the incision dry until you are 7 days out from the day of surgery. After 7 days you may remove the Silverlon dressing and shower with the urszula exposed. Let soapy water run over the urszula and pat them dry. Do not scrub or soak the incision. Things To Watch For: * Drainage from the incision site that occurs more than one week after your surgery. * Increased redness at the incision site. * Fever above 102 degrees Fahrenheit. * Unusual chest pain or shortness of breath. * Call [facility] at with any of the above problems Follow-Up Visit: Follow-up with Dr. Singh's PA (Viral Zepeda) 2-3 weeks after your day of surgery. He will remove your urszula and answer any questions. If you have any additional questions or concerns, Dr Singh is usually in the office at the same time and will be available An appointment was probably scheduled when you signed-up for surgery in the office. If you have any questions call More detailed instructions as well as Frequently Asked Questions were provided in a folder by our office when you signed-up for surgery. Please review these instructions when you get home. If you have any further questions or concerns, please feel free to call the office at [phone] Pending Studies at Discharge: No Stand-Alone Forms: My [facility] Medications and DC Order Prescriptions: New oxycodone-acetaminophen 5-325 mg tablet 1 tab PO Q6H PRN (Reason: pain) Qty: 30 0RF Continued clindamycin HCl 300 mg capsule 600 mg PO ONCE Qty: 4 2RF Rx Instructions: TAKE 2 300MG TABLETS 1 HOUR BEFORE DENTAL PROCEDURE citalopram 20 mg Tablet 15 mg PO QAM esomeprazole magnesium 40 mg Capsule,Delayed Release(Dr/Ec) 40 mg PO QAM docusate sodium [Colace] 100 mg Capsule 100 mg PO QAM fludrocortisone 0.1 mg Tablet 0.1 mg PO QAM Qty: 30 2RF hydrocortisone 5 mg tablet 5 mg PO DIRECTED Qty: 60 0RF Rx Instructions: take with food every AM, and every PM about 5pm. fiber Tablet 1 tab PO QAM cholecalciferol (vitamin D3) [Vitamin D3] 50 mcg (2,000 unit) Capsule 50 mcg PO QAM acetaminophen [Tylenol Ex Str Rapid Release] 500 mg Tablet 1,000 mg PO Q6H PRN (Reason: Pain) ibuprofen [Advil] 200 mg Tablet 400 mg PO Q6H PRN (Reason: Pain) levothyroxine 137 mcg Tablet 137 mcg PO QAM Discharge Orders: Discharge Order (Routine); Ordered 08/21/22 Ordered By: Viral Singh Admission Data Admit Date/Time: 08/20/22 16:55 Attending Provider: Viral Singh Admit Provider: Viral Singh Primary Care Provider: Kallie Giraldo
== END 2022-08-21 12:29 | disposition home health service (06) ==
LOC: ASU 11:17 → 3W 11:17